=== PATIENT | female | born 1945 | race Caucasian/White ===

== ENCOUNTER 2019-03-13 12:53 | Day surgery (SDC) | payer MEDICARE, OTHER, SELFPAY ==
[2019-03-13] VITALS (8 sets, daily range): BP systolic 121–154; BP diastolic 68–87; PULSE 58–84; RESP 10–16; TEMP 36.3–36.5; O2SAT 95–100; BMI 29.5
--- NOTE | 2019-03-13 14:19 | PM.HP.1 ---
History of Present Illness Date Patient Seen: 03/13/19 Time Patient Seen: 14:19 Chief complaint: [id number] Narrative: 73-year-old woman presents for screening colonoscopy 5 years after last, history of colon polyps No family history of colon cancer No intestinal complaints Patient History Medical History (Updated 03/13/19 @ 13:28 by Erum Ledesma RN) Hypertension (Acute) Right ACL tear (Acute) Social History household members: none Family & Social History Social History: household members none Meds Home Medications Medication Instructions Recorded Confirmed Type aspirin 81 mg PO DAILY 03/13/19 03/13/19 History atenolol 50 mg PO DAILY 03/13/19 03/13/19 History furosemide 40 mg PO DAILY 03/13/19 03/13/19 History losartan 100 mg PO DAILY 03/13/19 03/13/19 History potassium chloride [Klor-Con 10] 10 meq PO DAILY 03/13/19 03/13/19 History Allergies Allergy/AdvReac Type Severity Reaction Status Date / Time No Known Drug Allergies Allergy Verified 03/13/19 13:28 Review of Systems Constitutional Constitutional: Denies fever(s) Eyes Eyes: Denies bulging eyes ENT Ears, Nose, Mouth, and Throat: No lip swelling Cardiovascular Cardiovascular: Denies generalize swelling Respiratory Respiratory: Denies stridor Gastrointestinal Gastrointestinal: Denies coffee ground emesis Musculoskeletal Musculoskeletal: Denies loss of height Integumentary/Breasts Skin/Breast: Denies wounds Neurologic Neurologic: Denies abnormal speech and Denies confusion Psychiatric Psychiatric: Denies confusion Endocrine Endocrine: Denies deepening of the voice Hematologic/Lymphatic Hematologic/Lymphatic: Denies lymphadenopathy Allergic/Immunologic Allergic/Immunologic: Denies lip swelling Exam Vital Signs (past 8 hours): - 03/13/19 13:28 Temperature 97.3 F L Pulse Rate 66 Respiratory Rate 16 Blood Pressure 154/87 H Pulse Oximetry 97 Oxygen Delivery Method Room Air Const General: cooperative and healthy appearing Orientation: alert HENMT Head: normal to inspection Nose: nares normal Mouth: oral mucosae normal and lip normal Eyes Eyelids: eyelids normal Conjunctivae: conjunctivae normal Sclera: sclerae normal Neck Neck: supple and other (No thyromegally) Chest Chest: other (LCTAB , regular respiratory effort) Cardio Rhythm: regular rhythm Heart Sounds: S1 normal, S2 normal, no gallops, no murmurs and no rubs Skin General: no rashes or lesions noted Neuro General: alert and awake Psych Appearance: grossly normal Affect: normal affect Assessment & Plan Assessment & Plan narrative: 73-year-old female here for 3rd ever screening colonoscopy 5 years after last, history of colon polyps Risks and benefits of procedure discussed including bleeding , perforation, missed lesions, hypoxia, Patient ready to proceed All questions answered
[2019-03-13] MEDS: fentaNYL 250 MCG/5 ML INJ IV (14:24)
[2019-03-13] MEDS: MIDAZOLAM 5 MG/5 ML VIAL IV (14:24)
--- NOTE | 2019-03-13 15:17 | PM.OP.ENDO ---
Operative Date/Time/Diagnoses Date of procedure: 03/13/19 Time of procedure: 15:17 Pre-op diagnosis: Colorectal cancer screening Post-op diagnosis: same Procedure & Clinicians Study performed: Screening colonoscopy-complete Same procedure as scheduled: Yes Indications: 73-year-old female with a history of colon polyps now 5 years status post her last screening colonoscopy Surgeon: Kameron Rubio Procedure Notes SCOAP/Timeout: completed Procedure in detail: Patient was brought endoscopies suite, a time-out was completed. She was sedated over the entire course of the procedure with 200 mcg of fentanyl and 8 mg of midazolam. A digital rectal exam was performed without concerns. 160 cm colonoscope was then advanced through the full to the rectum and colon until the cecum was reached. Of note the colon was long redundant and quite floppy requiring multiple advancements and withdrawals to obtain adequate scope length, ultimately with the patient in prone position we were able to reach the cecum. The cecum was identified via prominent ileocecal valve as well as and appendiceal orifice. The scope was then slowly withdrawn. Carefully inspecting the mucosa. No lesions were identified. The scope was retroflexed at the distal rectum again no lesions were identified Prep was adequate Scope withdrawal time: 12 Sedation minutes: 39 Specimen(s): none sent Complications: none Impression: Normal screening colonoscopy Recommendations: Colonscopy in 5 years Plan for aftercare: PACU then home Follow up: as needed Disposition: PACU
--- NOTE | 2019-03-13 15:52 | SUR.PHASEII ---
1545 VSS, call light given, juice given, declined solids. 1552 Dozing,
--- NOTE | 2019-03-13 16:13 | SUR.PHASEII ---
warm blanket given, aroused easily to voice, skin warm and dry, resp unlabored.
--- NOTE | 2019-03-13 16:57 | SUR.PHASEII ---
states that she feels stable to go home. denies discomfort, was dozing, aroused easily to voice. Confirmed that she has her purse and contents. Waiting for discharge approval by .
--- NOTE | 2019-03-13 17:26 | SUR.PHASEII ---
1712 Pt sitting in wheelchair, waiting for dr approval to go home via taxi. Spoke with dr, said that she can go if she can state the square root of 25. Pt. answered promptly. She had already ordered an [employer]. Confirmed with patient that she is familiar with [employer] and how to ensure that she is in the proper vehicle. States that she used [employer] for 3 weeks in [place]. 1723 Pt taken to ED entrance to await ride. Alert, oriented, pointed out that she had the vehicle make, color, license number and the name/picture of the pickup driver. Discharged. Stable, oriented, denies pain, no light-headedness/nausea.
== END 2019-03-13 17:23 | disposition home or self-care (01) ==
PROVIDERS: PCP Family Medicine; Visit Provider Surgery
PROC: 0DJD8ZZ Inspection of Lower Intestinal Tract, Via Natural or Artificial Opening Endoscopic (ICD-10-PCS; CPT 45378; principal; 2019-03-13 14:00)
DX: Z86.010 Personal history of colon polyps (principal); I10 Essential (primary) hypertension
CPT/HCPCS: G0105; 99152; 99153; J2250; J3010